=== PATIENT | male | born 1965 | race African-American/Black ===

== ENCOUNTER 2018-07-11 04:30 | Inpatient (IN) | payer MEDICAID ==
[~2018-07-11] VITALS: Ht 165.1 cm; Wt 49.9 kg
[~2018-07-11 04:30] MED LIST: GABA-529 PO; KEPP500 PO; LACT10SO6 PO; LEVO25TA7 PO; LISI10TA5 PO
[2018-07-11] MEDS ORDERED: LORAZEPAM 2MG/ML CPJ IV ONE (05:30)
[2018-07-11 05:48] LABS: CHLORIDE 98 mEq/L (98-107)
[2018-07-11 05:53] LABS: ETHANOL BLOOD < 10 mg/dL
[2018-07-11] MEDS ORDERED: SODIUM CHLORIDE 0.9% 1,000 ML IV ONE (05:53)
[2018-07-11 05:56] LABS: BASOPHILS % 0.6 % (0.0-2.0); EOSINOPHILS % 0.1 % (0.0-5.0); HEMATOCRIT. 35.9 % (42.0-52.0); HEMOGLOBIN. 12.2 g/dL (14.0-18.0); LYMPHOCYTES % 15.5 % (20.0-50.0); MEAN CORPUSCULAR HEMOGLOBIN 30.7 pg (28.0-32.0); MEAN PLATELET VOLUME 7.2 fl (7.4-10.4); MONOCYTES % 7.2 % (2.0-8.0); NEUTROPHILS % 76.6 % (40.0-76.0); PLATELET 279 x1000/uL (130-400); RED BLOOD CELL COUNT 3.99 mill/uL (4.7-6.1); RED CELL DISTRIBUTION WIDTH 15.5 % (11.6-14.6)
[2018-07-11 06:38] LABS: CREATINE KINASE 157 IU/L (39-308)
[2018-07-11 06:46] LABS: CARBAMAZEPINE < 0.5 ug/mL (4-12); PHENOBARBITAL < 2.1 ug/mL (15.0-40.0); VALPROIC ACID < 3.0 ug/mL (50-100)
[2018-07-11] MEDS ORDERED: LACTULOSE 20G/30ML UDC PO ONE (07:15)
[2018-07-11] MEDS ORDERED: LEVETIRACETAM 500MG PREMIX 100 ML IV ONE (07:15)
[2018-07-11] MEDS ORDERED: SODIUM CHLORIDE 0.9% 1000ML BAG (SEPSIS BOLUS) IV ONE (07:15)
[2018-07-11] MEDS ORDERED: SODIUM CHLORIDE 0.9% 590 ML IV SCH (07:45)
[2018-07-11 08:40] LABS: CLARITY URINE CLEAR (CLEAR); COLOR URINE YELLOW (YELLOW); KETONES URINE NEGATIVE (NEGATIVE); LEUKOCYTE ESTERASE URINE NEGATIVE (NEGATIVE); NITRITE URINE NEGATIVE (NEGATIVE); OCCULT BLOOD URINE NEGATIVE (NEGATIVE); PH URINE 5.5 (4.5-8.0); PROTEIN URINE NEGATIVE (NEGATIVE); SPECIFIC GRAVITY URINE 1.014 (1.005-1.030); UROBILINOGEN URINE 0.2 E.U./dL (0.2-1.0)
[2018-07-11 08:56] LABS: CANNABINOID URINE SCREEN PRESUMTIVE POSITIVE (NEGATIVE); PHENCYCLIDINE URINE SCREEN NEGATIVE (NEGATIVE)
[2018-07-11 08:57] LABS: *AMPHETAMINES SCREEN URINE NEGATIVE (NEGATIVE); *BARBITURATES SCREEN URINE NEGATIVE (NEGATIVE); *BENZODIAZEPINES SCREEN URINE NEGATIVE (NEGATIVE); *COCAINE SCREEN URINE NEGATIVE (NEGATIVE); METHADONE URINE SCREEN NEGATIVE (NEGATIVE); OPIATES URINE SCREEN NEGATIVE (NEGATIVE)
[2018-07-11] MEDS ORDERED: DEXTROSE 50% WATER 50ML SYRINGE IV PRN ×2 (09:15→17:30)
[2018-07-11] MEDS ORDERED: ACETAMINOPHEN 325MG TABLET PO PRN (09:15)
[2018-07-11] MEDS ORDERED: ONDANSETRON HCL 4MG/2ML INJ IV PRN ×2 (09:15→17:30)
[2018-07-11] MEDS ORDERED: LORAZEPAM 2MG/ML CPJ IV PRN ×2 (09:15→17:30)
[2018-07-11] MEDS ORDERED: BLOOD SUGAR DIAGNOSTIC STRIP TEST SCH (13:00)
[2018-07-11] MEDS ORDERED: INSULIN LISPRO 100 UNITS/ML SUBCUT SCH (13:20)
[2018-07-11] MEDS ORDERED: LOSARTAN POTASSIUM 50 MG TABLET PO SCH (17:00)
[2018-07-11 17:15] VITALS: BP 144/79
[2018-07-11] MEDS: LOSARTAN POTASSIUM 50 MG TABLET PO SCH (19:40)
[2018-07-11] MEDS: INSULIN LISPRO 100 UNITS/ML SUBCUT SCH ×2 (19:40→20:10)
[2018-07-11] MEDS: BLOOD SUGAR DIAGNOSTIC STRIP TEST SCH (20:09)
[2018-07-11] MEDS ORDERED: AMLODIPINE 5MG TABLET PO SCH (21:00)
[2018-07-11] MEDS ORDERED: LEVETIRACETAM 500MG TABLET PO SCH (21:00)
[2018-07-11] MEDS: ACETAMINOPHEN 325MG TABLET PO PRN ×2 (21:34→21:41)
[2018-07-11] MEDS: LEVETIRACETAM 500MG TABLET PO SCH (21:39)
[2018-07-11] MEDS: AMLODIPINE 5MG TABLET PO SCH (21:45)
[2018-07-11] MEDS ORDERED: PIPERACILLIN/TAZ 3.375G PREMIX 50 ML IV SCH (22:00)
[2018-07-12] VITALS: BP 120/61
[2018-07-12 01:44] VITALS: BP 120/61
[2018-07-12 04:00] VITALS: BP 122/60
[2018-07-12] MEDS: BLOOD SUGAR DIAGNOSTIC STRIP TEST SCH ×3 (06:00→17:17)
[2018-07-12] MEDS: PIPERACILLIN/TAZ 3.375G PREMIX 50 ML IV SCH ×3 (06:33→17:18)
[2018-07-12] MEDS: INSULIN LISPRO 100 UNITS/ML SUBCUT SCH ×3 (07:50→17:17)
[2018-07-12 08:00] VITALS: BP 106/61
[2018-07-12] MEDS: AMLODIPINE 5MG TABLET PO SCH (08:32)
[2018-07-12] MEDS: LOSARTAN POTASSIUM 50 MG TABLET PO SCH (08:32)
[2018-07-12] MEDS: LEVETIRACETAM 500MG TABLET PO SCH (08:32)
[2018-07-12 12:00] VITALS: BP 109/77
[2018-07-12 16:00] VITALS: BP 110/72
== END 2018-07-12 18:35 | disposition home or self-care (01) | DRG 53 ==
LOC: ER 05:13 → 6WST 07:50 → EDBEDREQTM 07:52 → EDBEDREQ 07:52 → ENRESERV 13:34 → CANRESERV 13:34 → ENRESERV 14:01 → ER 17:21
PROVIDERS: ADMIT Internal Medicine; ATTEND Internal Medicine
DX: G40.409 Other generalized epilepsy and epileptic syndromes, not intractable, without status epilepticus (principal); E87.1 Hypo-osmolality and hyponatremia; D64.9 Anemia, unspecified; I10 Essential (primary) hypertension; E11.9 Type 2 diabetes mellitus without complications; F12.90 Cannabis use, unspecified, uncomplicated; Z82.49 Family history of ischemic heart disease and other diseases of the circulatory system; Z86.73 Personal history of transient ischemic attack (TIA), and cerebral infarction without residual deficits; Z88.9 Allergy status to unspecified drugs, medicaments and biological substances; Z79.84 Long term (current) use of oral hypoglycemic drugs
CPT/HCPCS: 36415; 70551; 71045; 80156; 80165; 80184; 80185; 80305; 82140; 82550; 82962; 83605; 84484; 93005; 96365; 97162; 99291; G0482; J1815; J1953; J2060; J2543; J7030; J7050

== ENCOUNTER 2018-10-02 06:39 | Inpatient (IN) | payer MEDICAID ==
[~2018-10-02] VITALS: Ht 165.1 cm; Wt 49.9 kg
[2018-10-02] MEDS ORDERED: LORAZEPAM 2MG/ML CPJ ONE (07:13)
[2018-10-02] MEDS ORDERED: LORAZEPAM 2MG/ML CPJ IV ONE (07:15)
[2018-10-02 07:31] LABS: BASOPHILS % 0.5 % (0.0-2.0); EOSINOPHILS % 0.9 % (0.0-5.0); HEMATOCRIT. 37.3 % (42.0-52.0); HEMOGLOBIN. 11.9 g/dL (14.0-18.0); LYMPHOCYTES % 51.8 % (20.0-50.0); MEAN CORPUSCULAR VOLUME 90.7 fL (80.0-94.0); MEAN PLATELET VOLUME 7.6 fl (7.4-10.4); MONOCYTES % 10.4 % (2.0-8.0); NEUTROPHILS % 36.4 % (40.0-76.0); PLATELET 193 x1000/uL (130-400); RED BLOOD CELL COUNT 4.12 mill/uL (4.7-6.1); RED CELL DISTRIBUTION WIDTH 15.3 % (11.6-14.6)
[2018-10-02 07:35] LABS: CHLORIDE 99 mEq/L (98-107)
[2018-10-02 07:38] LABS: ETHANOL BLOOD 77 mg/dL
[2018-10-02] MEDS ORDERED: LEVETIRACETAM 1000MG/100ML 100 ML IV ONE (08:00)
[2018-10-02 13:58] LABS: CLARITY URINE CLEAR (CLEAR); COLOR URINE YELLOW (YELLOW); KETONES URINE NEGATIVE (NEGATIVE); LEUKOCYTE ESTERASE URINE NEGATIVE (NEGATIVE); NITRITE URINE NEGATIVE (NEGATIVE); OCCULT BLOOD URINE 1+ (NEGATIVE); PROTEIN URINE TRACE (NEGATIVE); UROBILINOGEN URINE 0.2 E.U./dL (0.2-1.0)
[2018-10-02 14:29] LABS: *AMPHETAMINES SCREEN URINE NEGATIVE (NEGATIVE); *BARBITURATES SCREEN URINE NEGATIVE (NEGATIVE); *BENZODIAZEPINES SCREEN URINE NEGATIVE (NEGATIVE); *COCAINE SCREEN URINE NEGATIVE (NEGATIVE); METHADONE URINE SCREEN NEGATIVE (NEGATIVE); OPIATES URINE SCREEN NEGATIVE (NEGATIVE)
[2018-10-02 14:30] LABS: CANNABINOID URINE SCREEN NEGATIVE (NEGATIVE); PHENCYCLIDINE URINE SCREEN NEGATIVE (NEGATIVE)
[2018-10-02] MEDS ORDERED: LORAZEPAM 2MG/ML CPJ IV PRN (19:30)
[2018-10-02] MEDS ORDERED: ONDANSETRON HCL 4MG/2ML INJ IV PRN (19:30)
[2018-10-02] MEDS ORDERED: MAGNESIUM/ALUMINUM HYDROXIDE/SIMETHICONE 30ML UDC PO PRN (19:30)
[2018-10-02] MEDS ORDERED: DIPHENHYDRAMINE 50MG/ML VIAL IV PRN (19:30)
[2018-10-02] MEDS ORDERED: ACETAMINOPHEN 325MG TABLET PO PRN (19:30)
[2018-10-02] MEDS ORDERED: MVI, ADULT NO.1 10 ML, FOLIC ACID 1 MG, THIAMINE HCL 100 MG in SODIUM CHLORIDE 0.9% 1,0... IV NR ×4 (20:30)
[2018-10-02] MEDS ORDERED: LEVETIRACETAM 1000MG/100ML 100 ML IV NR (20:45)
[2018-10-02] MEDS ORDERED: TEMAZEPAM 15MG CAPSULE PO PRN (21:00)
[2018-10-02 22:46] VITALS: BP 133/79
[2018-10-02] MEDS ORDERED: SODIUM CHLORIDE 0.9% 1,000 ML IV SCH (23:00)
[2018-10-02] MEDS ORDERED: SODIUM CHLORIDE 0.9% INJ 3ML FLUSH IVF SCH (23:00)
[2018-10-03] MEDS ORDERED: LEVETIRACETAM 500MG PREMIX 100 ML IV SCH (01:00)
[2018-10-03 04:00] VITALS: BP 123/81
[2018-10-03 06:45] LABS: CHLORIDE 100 mEq/L (98-107)
[2018-10-03 06:55] LABS: PHOSPHORUS 3.7 mg/dL (2.5-4.9)
[2018-10-03 07:00] LABS: BASOPHILS % 0.3 % (0.0-2.0); EOSINOPHILS % 0.1 % (0.0-5.0); HEMATOCRIT. 33.7 % (42.0-52.0); HEMOGLOBIN. 11.3 g/dL (14.0-18.0); LYMPHOCYTES % 15.1 % (20.0-50.0); MEAN CORPUSCULAR HEMOGLOBIN 29.2 pg (28.0-32.0); MEAN CORPUSCULAR VOLUME 87.4 fL (80.0-94.0); MEAN PLATELET VOLUME 8.5 fl (7.4-10.4); MONOCYTES % 9.3 % (2.0-8.0); NEUTROPHILS % 75.2 % (40.0-76.0); PLATELET 152 x1000/uL (130-400); RED BLOOD CELL COUNT 3.86 mill/uL (4.7-6.1); RED CELL DISTRIBUTION WIDTH 15.4 % (11.6-14.6)
[2018-10-03 08:00] VITALS: BP 143/85
[2018-10-03] MEDS ORDERED: LEVETIRACETAM 500 MG in SODIUM CHLORIDE 0.9% 100 ML IV SCH ×2 (09:00→21:00)
[2018-10-03 12:48] VITALS: BP 137/78
[2018-10-03 14:48] VITALS: BP 137/78
[2018-10-03 16:01] VITALS: BP 154/85
== END 2018-10-03 17:50 | disposition home or self-care (01) | DRG 53 ==
LOC: ER 06:39 → 8WST 12:50 → ENRESERV 20:42
PROVIDERS: ADMIT Internal Medicine; ATTEND Internal Medicine
DX: G40.409 Other generalized epilepsy and epileptic syndromes, not intractable, without status epilepticus (principal); G93.41 Metabolic encephalopathy; E87.2 Acidosis; F10.10 Alcohol abuse, uncomplicated; I10 Essential (primary) hypertension; Z82.49 Family history of ischemic heart disease and other diseases of the circulatory system; Z88.8 Allergy status to other drugs, medicaments and biological substances; Z79.899 Other long term (current) drug therapy
CPT/HCPCS: 36415; 71045; 80185; 80305; 80320; 82010; 82140; 82962; 83605; 83735; 84100; 84443; 84484; 96374; 96375; 99285; J1953; J2060; J3411; J3490; J7030; J7050; G0480

== ENCOUNTER 2019-02-07 15:08 | Emergency (ER) | payer MEDICAID ==
[~2019-02-07] VITALS: Ht 165.1 cm; Wt 50.0 kg
[2019-02-07] MEDS ORDERED: KETOROLAC 30MG/ML VIAL IV STA (17:27)
[2019-02-07] MEDS ORDERED: SODIUM CHLORIDE 0.9% 1,000 ML IV ONE (17:27)
[2019-02-07 17:49] LABS: CLARITY URINE CLEAR (CLEAR); COLOR URINE DARK YELLOW (YELLOW); KETONES URINE 1+ (NEGATIVE); LEUKOCYTE ESTERASE URINE NEGATIVE (NEGATIVE); NITRITE URINE NEGATIVE (NEGATIVE); OCCULT BLOOD URINE NEGATIVE (NEGATIVE); PROTEIN URINE NEGATIVE (NEGATIVE); SPECIFIC GRAVITY URINE 1.017 (1.005-1.030); UROBILINOGEN URINE 0.2 E.U./dL (0.2-1.0)
[2019-02-07 18:47] LABS: INR 1.1; PROTHROMBIN TIME 11.1 sec (9.6-11.0)
[2019-02-07 18:48] LABS: BASOPHILS % 0.4 % (0.0-2.0); CHLORIDE 94 mEq/L (98-107); HEMATOCRIT. 34.5 % (42.0-52.0); HEMOGLOBIN. 11.7 g/dL (14.0-18.0); LYMPHOCYTES % 14.9 % (20.0-50.0); MEAN CORPUSCULAR HEMOGLOBIN 29.7 pg (28.0-32.0); MEAN CORPUSCULAR VOLUME 87.6 fL (80.0-94.0); MEAN PLATELET VOLUME 7.3 fl (7.4-10.4); MONOCYTES % 10.8 % (2.0-8.0); NEUTROPHILS % 73.9 % (40.0-76.0); PLATELET 148 x1000/uL (130-400); RED BLOOD CELL COUNT 3.94 mill/uL (4.7-6.1); RED CELL DISTRIBUTION WIDTH 14.6 % (11.6-14.6)
[2019-02-07] MEDS ORDERED: IOHEXOL-300 100 ML BOTTLE ONE (19:32)
[2019-02-07 23:33] VITALS: BP 153/82
[2019-02-07] MEDS ORDERED: ONDANSETRON 4MG ODT PO ONE (23:45)
== END 2019-02-07 23:35 | disposition home or self-care (01) ==
LOC: ER 15:08
DX: M54.5 Low back pain (principal); R10.30 Lower abdominal pain, unspecified; R03.0 Elevated blood-pressure reading, without diagnosis of hypertension
CPT/HCPCS: 36415; 74177; 80053; 81003; 83690; 85025; 85610; 96374; 99284; J1885; J7030; Q0162; Q9967